=== PATIENT | female | born 1955 | race Two or more races ===

== ENCOUNTER 2023-03-02 07:09 | Day surgery (SDC) | payer OTHER, MEDICAID ==
[~2023-03-02] VITALS: Ht 170.2 cm; Wt 71.7 kg
[~2023-03-02 07:09] MED LIST: ROSU20TA14 PO; TRAZ-228 PO
[2023-03-02] MEDS ORDERED: CIPROFLOXACIN 400MG/200ML 200 ML IV ONE (08:13)
[2023-03-02] MEDS ORDERED: MIDAZOLAM HCL 2MG/2ML 2ml VIAL (1mg/ml) ONE (09:04)
[2023-03-02] MEDS ORDERED: fentaNYL CITRATE 100 MCG/2 ML VL ONE (09:04)
[2023-03-02] MEDS ORDERED: DexAMETHasone SOD PHOS 10MG/1ML VIAL INJ ONE (09:18)
[2023-03-02] MEDS ORDERED: PROPOFOL 10 MG/ML 20 ML IV ONE (09:43)
[2023-03-02] MEDS ORDERED: MIDAZOLAM HCL 2MG/2ML 2ml VIAL (1mg/ml) IV PRN (10:00)
[2023-03-02] MEDS ORDERED: HYDROmorphone HCL 2 MG/ML VL/or syr IV PRN (10:00)
[2023-03-02] MEDS ORDERED: ONDANSETRON HCL 4 MG/2 ML VIAL IV PRN (10:00)
[2023-03-02] MEDS ORDERED: MORPHINE SULFATE 4 MG/ML SYR/VIAL IV PRN (10:00)
[2023-03-02] MEDS ORDERED: LABETALOL HCL 5 MG/ML 4ML SYRINGE IV PRN (10:00)
[2023-03-02] MEDS ORDERED: ePHEDrine SULFATE 50 MG/ML AMP IV PRN (10:00)
[2023-03-02 10:30] VITALS: BP 137/80
== END 2023-03-02 10:50 | disposition home or self-care (01) ==
LOC: SUR 07:09
PROVIDERS: ATTEND Urology
DX: N39.3 Stress incontinence (female) (male) (principal)
CPT/HCPCS: 51715; C1769; J0744; J1100; J2250; J2704; J3010; J7030; L8606